=== PATIENT | male | born 1985 | race Caucasian/White ===

== ENCOUNTER 2017-05-11 14:25 | Emergency (ER) | payer OTHER ==
[~2017-05-11] VITALS: Ht 170.2 cm; Wt 133.8 kg
[2017-05-11] MEDS ORDERED: GABA600T (14:42)
[2017-05-11] MEDS ORDERED: CYCL10TA (14:42)
[2017-05-11] MEDS ORDERED: HYDROCODON (14:42)
[2017-05-11] MEDS ORDERED: NORT10CA2 (14:42)
[2017-05-11] MEDS ORDERED: ROBA500T PO (15:24)
[2017-05-11] MEDS ORDERED: METHOCARBAMOL 500 MG TAB PO ONE (15:30)
[2017-05-11] MEDS ORDERED: NORCO, ANEXSIA 5/325MG TABLET (HYDROcodone/ACETAMINOPHEN) PO ONE (15:30)
[2017-05-11] MEDS ORDERED: KETOROLAC 60 MG/2 ML VIAL (J1885) IM ONE (15:30)
[2017-05-11 15:55] VITALS: BP 123/87
== END 2017-05-11 16:00 | disposition home or self-care (01) ==
LOC: M ED 15:40
DX: M54.16 Radiculopathy, lumbar region (principal); M54.42 Lumbago with sciatica, left side; G89.29 Other chronic pain; G47.33 Obstructive sleep apnea (adult) (pediatric); Z79.899 Other long term (current) drug therapy
CPT/HCPCS: 96372; 99282; J1885